=== PATIENT | male | born 1965 | race Caucasian/White ===

== ENCOUNTER → 2021-11-02 | Outpatient (CLI) | payer OTHER, SELFPAY ==
--- NOTE | 2021-11-02 13:02 | CDU_ITS ---
Reason For Study: Carotid Stenosis Rt. Velocities/BP Lt. Velocities/BP Prox CCA 105/26 cm/sec. Prox CCA 99/25 cm/sec. Mid CCA 104/28 cm/sec. Mid CCA 93/28 cm/sec. Dist CCA 83/25 cm/sec. Dist CCA 76/24 cm/sec. Prox ICA 62/17 cm/sec. Prox ICA 86/22 cm/sec. Mid ICA 65/24 cm/sec. Mid ICA 89/35 cm/sec. Dist ICA 101/38 cm/sec. Dist ICA 97/41 cm/sec. Rt. ICA/CCA = 1.0. Lt. ICA/CCA = 1.0. Prox ECA 113/23 cm/sec. Prox ECA 99/25 cm/sec. Rt. Vert. 46/17 cm/sec. Lt. Vert. 63/22 cm/sec. Right Extracranial There is heterogeneous, irregular atherosclerotic plaque noted in the right common carotid artery. There is heterogeneous, irregular atherosclerotic plaque noted in the right internal carotid artery. There is heterogeneous, irregular atherosclerotic plaque noted in the right external carotid artery. Antegrade flow is noted in the right vertebral artery. Left Extracranial There is heterogeneous, irregular atherosclerotic plaque noted in the left common carotid artery. There is heterogeneous, irregular atherosclerotic plaque noted in the left internal carotid artery. There is intimal thickening but no significant atherosclerotic plaque noted in the left external carotid artery. Antegrade flow is noted in the left vertebral artery. Procedure Carotid Duplex 54180. This is a Carotid Duplex examination using B-mode, color flow and specral Doppler. Exam performed in department. VL/Carotid Duplex Ultrasound Interpretation Summary Irregular calcific plaque with some shadowing at the proximal right internal ca rotid artery with less than 50% stenosis Less than 50% stenosis right external carotid artery Irregular calcific plaque with shadowing at the proximal left internal carotid artery with less than 50% stenosis Less than 50% stenosis left external carotid artery Patent and antegrade vertebral arteries bilaterally Findings would correlate with the screening examination that was performed October 05, 2021 Ordering Physician: Miracle Steward Referring Physician: Miracle Steward Performed By: Mercy Moreland, BELTRAN, RVT
== END | disposition home or self-care (01) ==
PROVIDERS: PCP Internal Medicine; Visit Provider Internal Medicine
DX: I65.23 Occlusion and stenosis of bilateral carotid arteries (principal)
CPT/HCPCS: 93880